=== PATIENT | female | born 1965 | race Caucasian/White ===

== ENCOUNTER 2021-01-02 05:28 | Inpatient (IN) | payer BC ==
[2020-12-27 16:40] LABS: BASOPHILS % (AUTO) 0.8 % (0-1); EOSINOPHILS # (AUTO) 0.1 X10'3 (0-0.9); LYMPHOCYTES # (AUTO) 2.6 X10'3 (1.1-4.8); LYMPHOCYTES % (AUTO) 39.1 % (21-51); MEAN CORPUSCULAR HEMOGLOBIN 30.7 PG (27.0-31.0); MEAN CORPUSCULAR HGB CONC 33.7 g/dL (33.0-36.5); MEAN PLATELET VOLUME 7.5 FL (7.4-10.4); MONOCYTES # (AUTO) 0.7 X10'3 (0-0.9); MONOCYTES % (AUTO) 10.2 % (2-12); NEUTROPHILS # (AUTO) 3.2 X10'3 (1.8-7.7); NEUTROPHILS % (AUTO) 47.9 % (42-75); PRE OP HEMATOCRIT 41.5 % (35.0-45.0); PRE OP PLATELET COUNT 289 X10'3 (140-440); RED BLOOD COUNT 4.56 X10'6 (4.20-5.60); RED CELL DISTRIBUTION WIDTH 13.2 % (11.5-14.5)
[2020-12-27 16:55] LABS: ALBUMIN 3.6 G/DL (3.4-5.0); ALBUMIN/GLOBULIN RATIO 0.9 (1.1-1.5); ALKALINE PHOSPHATASE 56 IU/L (46-116); BLOOD UREA NITROGEN 13 MG/DL (7-18); BUN/CREATININE RATIO 17.1 (6.6-38.0); CALCIUM 8.6 MG/DL (8.5-10.1); CHLORIDE 108 MMOL/L (99-107); CREATININE 0.76 MG/DL (0.40-0.90); PRE OP ALT 26 U/L (30-65); PRE OP ANION GAP 9 (8-16); PRE OP AST 17 U/L (10-37); PRE OP BILIRUB, TOTAL 0.3 MG/DL (0.0-1.0); PRE OP GLUCOSE 115 MG/DL (70-104); PRE OP SODIUM 145 MMOL/L (135-145); TOTAL CARBON DIOXIDE 28.2 MMOL/L (24-32); TOTAL PROTEIN 7.7 G/DL (6.4-8.2); eGFR 79 ML/MIN
[~2021-01-02] VITALS: Ht 172.7 cm; Wt 95.3 kg
[2021-01-02] VITALS (17 sets, daily range): BP systolic 118–137; BP diastolic 64–86
[~2021-01-02 05:28] MED LIST: CLON0.1T PO; LACT1CAP65 PO; LEVO100T78 PO; MELA5TAB12 PO; MULT-1085 PO; NEBI10TA2 PO; OMEP40CA13 PO; ringers solution, lacted 1,000 ML IV SCH
[2021-01-02] MEDS ORDERED: famotidine 20mg tablet PO ONE (05:30)
[2021-01-02] MEDS ORDERED: DOCUMENT DATE & TIME OF BETA-BLOCKER PO ONE (05:30)
[2021-01-02] MEDS ORDERED: vancomycin 1,500 MG in NS 300ml IV soln IV ONE (05:30)
[2021-01-02] MEDS ORDERED: tranexamic acid 650mg tablet PO ONE (05:30)
[2021-01-02] MEDS ORDERED: cefazolin/dext.iso 2gm/100ml IV ONE (05:30)
--- NOTE | 2021-01-02 06:55 | NUR ---
UNABLE TO SCAN SCOPOLAMINE PATCH WHEN ADMINISTERED. BAR CODE WILL NOT SCAN, PHARMACY NOTIFIED
[2021-01-02] MEDS ORDERED: scopolamine 1mg/72 hr patch TD ONE (06:58)
[2021-01-02] MEDS ORDERED: fentaNYL/PF 50MCG/1 ML 2ML syringe ONE (07:04)
[2021-01-02] MEDS ORDERED: midazolam 1 mg/ML 2ml injection ONE (07:04)
[2021-01-02] MEDS ORDERED: ROPIVAcaine 0.5% (5mg/ml) 30ml vial ONE ×2 (07:06→07:55)
[2021-01-02] MEDS ORDERED: ketorolac trometh. 30mg/ml inj. ONE (07:06)
[2021-01-02] MEDS ORDERED: sevoflurane 250ml liquid IH ONE (07:09)
[2021-01-02] MEDS ORDERED: ROPIVAcaine 0.2%/PF PUMP/bolus 545 ML INTERSCALE SCH (07:15)
[2021-01-02] MEDS ORDERED: ringers solution, lacted 1,000 ML IV SCH (07:15)
[2021-01-02] MEDS ORDERED: ondansetron/PF 4mg/2ml inj IV PRN ×2 (07:15→10:10)
[2021-01-02] MEDS ORDERED: labetalol 20mg/4ml (5mg/ml) syringe IV PRN (07:15)
[2021-01-02] MEDS ORDERED: proCHLORperazine 10 MG/2 ml inj IV PRN ×2 (07:15→12:15)
[2021-01-02] MEDS ORDERED: acetaminophen 1,000mg/100ml IV 100 ML IV PRN (07:15)
[2021-01-02] MEDS ORDERED: morphine 4 MG/ML inj SYRINge IV PRN (07:15)
[2021-01-02] MEDS ORDERED: ROPIVAcaine 0.2% (10 MG/5 ML) BOLUS INJECTION INTERSCALE PRN (07:15)
[2021-01-02] MEDS ORDERED: hydrALAZINE 20mg/ml inj. IV PRN (07:15)
[2021-01-02] MEDS ORDERED: meperidine/PF 25mg/ml syringe IV PRN ×3 (07:15)
[2021-01-02] MEDS ORDERED: morphine 2 MG/ML inj. syringe IV PRN (07:15)
[2021-01-02] MEDS ORDERED: LIDOcaine 2% (20mg/ml) 5ml vial ONE (07:55)
[2021-01-02] MEDS ORDERED: rocuronium 10mg/ml inj IV ONE (07:55)
[2021-01-02] MEDS ORDERED: LIDOcaine 1%/PF 5ML 10 MG/ML VIAL ONE (07:55)
[2021-01-02] MEDS ORDERED: propofol inj 20 ML IV ONE ×2 (07:55→09:17)
[2021-01-02] MEDS ORDERED: ondansetron/PF 4mg/2ml inj ONE (08:11)
[2021-01-02] MEDS ORDERED: dexamethasone sod phosphate 4mg/ml inj. ONE (08:11)
[2021-01-02] MEDS ORDERED: ePHEDrine 50MG/ML INJ. ONE (08:54)
[2021-01-02] MEDS ORDERED: 0.9 % SODIUM CHLORIDE 10 ML VIAL ONE (09:17)
[2021-01-02] MEDS ORDERED: acetaminophen 1,000mg/100ml IV 100 ML IV ONE (09:20)
[2021-01-02] MEDS ORDERED: neostigmine methylsulfate 1 MG/ML 10ml vial ONE (09:22)
[2021-01-02] MEDS ORDERED: glycopyrrolate 0.2mg/ml inj ONE (09:23)
--- NOTE | 2021-01-02 09:38 | NUR ---
Received from OR via , accompanied by Anesthesiologist DR GALE and report given by Anesthesiolgist. AWAKENS TO VOICE. VITALS STABLE. DRESSING DI. JANELL PAIN. LUE IN A SIMPLE SLING. FINGERS WARM AND PINK.
[2021-01-02] MEDS ORDERED: acetaminophen 325mg tablet PO PRN (10:10)
[2021-01-02] MEDS ORDERED: bisacodyl 10mg suppository rectal RC PRN (10:10)
[2021-01-02] MEDS ORDERED: oxyCODONE IR 5mg (immed. release) tablet PO PRN ×2 (10:10)
[2021-01-02] MEDS ORDERED: diphenhydrAMINE 25mg capsule PO PRN ×2 (10:10)
[2021-01-02] MEDS ORDERED: magnesium hydroxide 30ml (MOM) UD suspension PO PRN (10:10)
[2021-01-02] MEDS ORDERED: HYDROmorphone inj. 0.5 MG/0.5 ML DISP.SYRIN IV PRN (10:10)
[2021-01-02] MEDS ORDERED: HYDROmorphone 1 mg/ml syringe IV PRN (10:10)
--- NOTE | 2021-01-02 10:38 | NUR ---
Report called to receiving nurse. Transferred via BED Belongings . Special Issues communicated to receiving nurse. AWAKE AND ORIENTED. VITALS STABLE. DRESSING DI. JANELL PAIN. TO ORTHO RM [id number] AT THIS TIME.
--- NOTE | 2021-01-02 11:27 | NUR ---
This RN called OR to obtain an order for antiemetic. Pt has taken Zofran and has a scopolamine patch but she is still nauseated. Venancio RN in OR said he will relay the message to DR Green and call back with a response.
[2021-01-02] MEDS ORDERED: proCHLORperazine 10 MG/2 ml inj IV STA (12:15)
[2021-01-02] MEDS: ceFAZolin/D5W- 1GM premix 50 ML IV SCH (17:12)
[2021-01-02] MEDS: potassium cl 20mEq in 1/2 NS 1,000 ML IV SCH ×2 (17:12→18:10)
[2021-01-02] MEDS: acetaminophen 325mg tablet PO SCH ×2 (17:13→19:51)
[2021-01-02] MEDS ORDERED: vancomycin/NS 1 GM ADD-VANTAGE 250 ML IV SCH (20:00)
[2021-01-02] MEDS: metoprolol tartrate 50mg tablet PO SCH (20:56)
[2021-01-02] MEDS ORDERED: Melatonin 3mg tablet PO SCH (21:00)
[2021-01-02] MEDS ORDERED: cloNIDine 0.1 mg tablet PO SCH (21:00)
[2021-01-02] MEDS ORDERED: sennosides 8.6mg tablet PO SCH (21:00)
[2021-01-02] MEDS ORDERED: pantoprazole 40mg Tablet.DR PO SCH (21:00)
[2021-01-03 02:00] VITALS: BP 125/68
[2021-01-03] MEDS: acetaminophen 325mg tablet PO SCH ×2 (02:11→07:21)
[2021-01-03] MEDS: potassium cl 20mEq in 1/2 NS 1,000 ML IV SCH ×2 (02:13→10:32)
[2021-01-03] MEDS: ceFAZolin/D5W- 1GM premix 50 ML IV SCH (02:13)
[2021-01-03 06:08] LABS: BASOPHILS % (AUTO) 0.2 % (0-1); EOSINOPHILS % (AUTO) 0.1 % (0-6); HEMATOCRIT 36.3 % (35.0-45.0); HEMOGLOBIN 12.4 g/dl (12.0-16.0); LYMPHOCYTES % (AUTO) 14.8 % (21-51); MEAN CORPUSCULAR HEMOGLOBIN 31.1 PG (27.0-31.0); MEAN CORPUSCULAR HGB CONC 34.1 g/dL (33.0-36.5); MEAN CORPUSCULAR VOLUME 91.2 FL (78-98); MEAN PLATELET VOLUME 7.4 FL (7.4-10.4); MONOCYTES # (AUTO) 1.3 X10'3 (0-0.9); MONOCYTES % (AUTO) 9.8 % (2-12); NEUTROPHILS # (AUTO) 10.2 X10'3 (1.8-7.7); NEUTROPHILS % (AUTO) 75.1 % (42-75); PLATELET COUNT 272 X10'3 (140-440); RED BLOOD COUNT 3.98 X10'6 (4.20-5.60); RED CELL DISTRIBUTION WIDTH 13.1 % (11.5-14.5); WHITE BLOOD COUNT 13.6 X10'3 (4.5-11.0)
[2021-01-03 06:22] LABS: ANION GAP 12 (8-16); CHLORIDE 110 MMOL/L (99-107); POTASSIUM 4.2 MMOL/L (3.5-5.1); SODIUM 144 MMOL/L (135-145); TOTAL CARBON DIOXIDE 22.5 MMOL/L (24-32)
--- NOTE | 2021-01-03 06:29 | NUR ---
Problems reprioritized. Patient report given, questions answered & plan of care reviewed with MERCEDES ALVARADO.
[2021-01-03] MEDS: metoprolol tartrate 50mg tablet PO SCH (07:25)
[2021-01-03 08:00] VITALS: BP 124/79
[2021-01-03] MEDS ORDERED: lactobacillus rhamnosus 10,000 MMU CELLS/CAPSULE PO SCH (08:00)
[2021-01-03] MEDS ORDERED: cloNIDine 0.1 mg tablet PO SCH (08:00)
[2021-01-03] MEDS ORDERED: multivitamins, therapeutics tablet PO SCH (08:00)
[2021-01-03] MEDS ORDERED: levoTHYROXINE 100mcg tablet PO SCH (08:00)
[2021-01-03] MEDS ORDERED: aspirin 325mg tablet PO SCH (08:30)
--- NOTE | 2021-01-03 11:24 | NUR ---
Joint replacement consult: Pt s/p L shoulder surgery seen by PERNELL for written/verbal high protein ed w/ RD contact information provided. Addendum: 01/03/21 at [address] Amended: Links added.
[2021-01-04] MEDS ORDERED: acetaminophen 325mg tablet PO PRN (10:10)
--- NOTE | 2021-01-05 16:12 | NUR ---
CASE MANAGEMENT DISCHARGE FOLLOW UP: Spoke with pt via telephone. Reports that she is doing good, pain level is good/tolerable, states OnQ pump ran out yesterday, using ice as needed, no PO pain medication, using IS as directed; denies CP, SOB, fever/chills, s/sx of infection. Verbalizes understanding of s/sx requiring further evaluation/emergent assistance. Verbalizes understanding of new and current medications. Verbalizes compliance with MD discharge instructions. Verbalizes understanding of the importance in making/keeping follow-up appointments, post op with surgeon already scheduled. States no further questions/concerns at this time.
== END 2021-01-03 12:00 | disposition home or self-care (01) | DRG 483 ==
LOC: PAS IN 05:28 → UNDOADMIN 05:28 → PAS IN 10:10 → ORTHO 4S 10:45
PROVIDERS: ADMIT Orthopaedic Surgery; ATTEND Orthopaedic Surgery
PROC: 0LS40ZZ Reposition Left Upper Arm Tendon, Open Approach (ICD-10-PCS; 2021-01-02)
PROC: 3E0T3BZ Introduction of Anesthetic Agent into Peripheral Nerves and Plexi, Percutaneous Approach (ICD-10-PCS; 2021-01-02)
PROC: 0RRK0JZ Replacement of Left Shoulder Joint with Synthetic Substitute, Open Approach (ICD-10-PCS; principal; 2021-01-02 07:09)
DX: M19.012 Primary osteoarthritis, left shoulder (principal); M75.22 Bicipital tendinitis, left shoulder
CPT/HCPCS: Z7506; Z7508; 36415; 80051; 80053; 82948; 84443; 85025; 87081; 97161; 97530; A4565; A4618; A7000; C1713; C1776; G0378; J0131; J0690; J0780; J1100; J1885; J2001; J2250; J2405; J2704; J2710; J2795; J3010; J3370; J3480; J3490; J7040; J7120; U0003; U0005